=== PATIENT | female | born 1970 | race Caucasian/White ===

== ENCOUNTER 2023-04-28 14:05 | Outpatient (AMB) | payer BC, SELFPAY ==
--- NOTE | 2023-04-28 14:06 | MHC.OFFVIS ---
Intake Vital Signs 04/28/23 14:08 Height 5 ft BP 102/68 Blood Pressure Location Rt brachial Position Sitting Pulse 72 Pulse Source Pulse Oximeter Pulse Oximetry (%) 99 Oxygen Delivery Method Room Air Intake Visit Reasons: Mild COPD Web Merchandiser Required: No Senior Project Architect: Senior Project Architect offered & declined Accompanied by: Self / Same As Patient Allergies acetaminophen [From Percocet] Adverse Reaction (Verified 04/28/23 14:30) hallucinations and vomiting codeine Adverse Reaction (Verified 04/28/23 14:30) Vomiting, hallucinations doxycycline Adverse Reaction (Verified 04/28/23 14:30) Vomiting, hallucinations ibuprofen [From Motrin] Adverse Reaction (Verified 04/28/23 14:30) Nausea and myalgias oxycodone [From Percocet] Adverse Reaction (Verified 04/28/23 14:30) hallucinations and vomiting Sulfa (Sulfonamide Antibiotics) Adverse Reaction (Verified 04/28/23 14:30) rash and vomiting tramadol Adverse Reaction (Verified 04/28/23 14:30) hallucinations and vomiting zolpidem Adverse Reaction (Verified 04/28/23 14:30) Hallucinations gluten Adverse Reaction (Uncoded 04/28/23 14:30) severe nausea Medication List - Last Reconciled 04/28/23 by Denae Farrell LPN albuterol sulfate 90 mcg/actuation 2 puffs inhalation Q4-6H PRN cetirizine 10 mg PO DAILY PRN cholecalciferol (vitamin D3) 50 mcg PO DAILY coenzyme Q10 100 mg PO DAILY cyclobenzaprine 10 mg PO BID PRN estradiol (Vivelle-Dot) 1 patch transdermal 2XW fluticasone furoate 27.5 mcg/actuation (Flonase Sensimist) 1 spray intranasal DAILY levothyroxine (Levoxyl) 137 mcg PO DAILY methylphenidate HCl ER (Concerta) 27 mg PO DAILY multivitamin 1 tab PO DAILY omeprazole 20 mg PO DAILY sodium chloride 0.65% (Saline Mist) 1 spray intranasal DAILY PRN HPI Mild COPD HPI Details Cata is a pleasant 53 year old female, never smoker, although reports moderate second hand exposure, with underlying borderline obstruction on recent PFT, chronic sinusitis and allergic rhinitis. She was referred by PCP for pulmonary evaluation. She reports over the last year notable coughing fits with associated wheezing and chest tightness that were triggered when cutting the grass or exposure to other allergens. She was prescribed albuterol but was unsure when to use it. She is quite active and denies any respiratory symptoms with exercise. She also notes a prior chest CT years ago with possible nodules but was reassured there were no concerning findings. She reports no prior history of asthma but reports environmental allergies. No recent allergy testing. She has been taking zyrtec on a daily basis with relatively good control of symptoms. Her mother, smoker, had COPD, otherwise no pertinent family history. She denies any occupational exposures. Of note, she did report difficulty with swallowing which results in coughing/choking. She has an upcoming evaluation with GI. [facility] Social History (Updated 04/28/23 @ 14:17 by Denae Farrell LPN) Patient Tobacco Use Status: Never used Tobacco Review of Systems Const Denies chills, Denies fever(s), Denies headache(s) and Denies night sweats Eyes Denies dry eyes, Denies irritation and Denies itchy eyes ENT Reports Normal hearing present, Denies headache(s), Denies nasal congestion, Denies nasal discharge, Denies post nasal drip and Denies sore throat Card Denies chest pain, Denies chest pain at rest, Denies chest pain with activity, Denies claudication, Denies leg edema, Denies dyspnea, Denies dyspnea on exertion, Denies orthopnea and Denies paroxysmal nocturnal dyspnea Resp Denies chest congestion, Denies excessive phlegm production, Denies pain on inspiration, Denies pain with cough, Denies dyspnea, Denies dyspnea on exertion and Denies stridor Musc Denies myalgias Neuro Reports Normal hearing present and Denies headache(s) Pieter/Lymph Denies lymphadenopathy Aller/Immun Denies itchy eyes and Denies seasonal rhinorrhea Physical Exam Vital Signs: Last Vital Signs Pulse 72 04/28/23 14:08 BP 102/68 04/28/23 14:08 Pulse Ox 99 04/28/23 14:08 Oxygen Delivery Method Room Air 04/28/23 14:08 Const General: cooperative, healthy appearing, comfortable, no acute distress, well developed and alert Orientation/consciousness: patient oriented x3 Limitations: no limitations HEENT Head: Yes normal to inspection, Yes normocephalic and Yes atraumatic Ears: hearing grossly normal bilaterally and external ears normal Eyes General: appearance normal, both eyes and all related structures Eyelids: Yes eyelids normal Sclerae: sclerae normal EOM: EOMs intact bilaterally Neck Neck: Yes normal visual inspection and Yes no lymphadenopathy Lymphatic: no lymphadenopathy noted Chest Chest palpation & inspection: normal inspection of the chest Resp Effort & Inspection: normal respiratory effort, able to speak in complete sentences, no audible wheezes, no cough, no stridor, not tachypneic, no tripod positioning and no use of accessory muscles Auscultation: clear to auscultation bilaterally Cardio Jugular venous distension: no JVD Rate: regular rate Rhythm: regular rhythm Skin Other: warm, dry General skin exam: no rashes or lesions noted Neuro General: patient oriented x3 Cranial nerves: Yes Normal hearing present Cognition (Neuro): normal cognition Gait exam (Neuro): Normal gait present Extrem General: Yes normal to inspection, Yes capillary refill normal, Yes no clubbing, cyanosis or edema and Yes no pedal edema Psych Appearance: grossly normal and well kempt Speech and movement: Normal speech and movement present and Clear speech present Affect: normal affect Attitude: cooperative Thought process: Normal thought process present Thought content: Normal thought content present Insight: Good insight present (Psych) Judgement: Good judgement present (Psych) Results Reviewed Results Reviewed: Assessment & Plan Assessment & Plan (1) Cough: Code(s): R05.9 - Cough, unspecified (2) Environmental allergies: Code(s): Z91.09 - Other allergy status, other than to drugs and biological substances Plan Cata's symptoms are likely multifactorial with contribution from pulmonary, allergies and possible GI contribution. PFT revealed borderline obstruction with no response to bronchodilators. TLC normal, increased RV suggests air trapping as well as increased DLCO. Will send for chest CT to assess for cough as well as RAST. All questions were answered and patient is in agreement of plan. Will follow up to review results. Orders: Orders CT chest wo IV con 04/28/23 R05.9 - Cough, unspecified Immunoglobulin E 04/28/23 Z91.09 - Other allergy status, other than to drugs and biological substances Complete Blood Count Auto Diff 04/28/23 Z91.09 - Other allergy status, other than to drugs and biological substances Coding Level of Care Code New Pt Level 4 (11893) Diagnoses Cough R05.9 Environmental allergies Z91.09
[2023-04-28 14:08] VITALS: BP 102/68; PULSE 72; O2SAT 99
== END 2023-04-28 15:20 | disposition home or self-care (01) ==
PROVIDERS: PCP Pediatrics; Referring Provider Pediatrics; Visit Provider Nurse Practitioner Family
DX: R05.9 Cough, unspecified (principal); Z91.09 Other allergy status, other than to drugs and biological substances
CPT/HCPCS: 99204

== ENCOUNTER → 2023-04-28 14:05 | Outpatient (BNVA) | payer BC, SELFPAY | PROVIDERS: PCP Pediatrics; Referring Provider Pediatrics; Visit Provider Nurse Practitioner Family ==

== ENCOUNTER 2023-07-14 07:30 | Outpatient (REF) | payer BC, SELFPAY ==
--- NOTE | ~2023-07-14 | CT_ITS ---
EXAMINATION: CT CHEST WITHOUT CONTRAST CLINICAL INFORMATION: Cough. COMPARISON: None available. TECHNIQUE: Multidetector volumetric CT imaging of the chest was done. Axial MIP volume rendering provided. Sagittal and coronal reformatted images were obtained. This CT examination was performed using dose optimization techniques as appropriate, variously including the following: *Automated exposure control *Adjustment of mA and/or kV according to patient size (this includes techniques or standardized protocols for targeted exams where dose is matched to indication/reason for exam; i.e. extremities or head) *Use of iterative reconstruction technique DLP: 117 mGy-cm FINDINGS: INTERLOCKING TOWER OPERATOR: The lungs are symmetrically well-expanded and grossly clear. LUNGS: Within the central right apex (5:108), a small endobronchial density is seen. Laterally within the right upper lobe (5:187), a 3 mm noncalcified subpleural nodule is seen. Abutting the right accessory and major fissures (5:247 and 264), there are 3 approximately 5 mm benign, pleural-based lymph nodes. At the lateral right base (5:313), there is a coarse benign, calcified granuloma. At the posteromedial right base (5:322 and 367), 4 mm and 3 mm benign, pleural-based lymph nodes are seen. At the anterior right base (5:372), a coarse benign, calcified granuloma is seen. Within the left upper lobe (5:121 and 159), there are coarse benign, calcified granulomas. There is mild biapical pleural and parenchymal scarring. There is no mass, infiltrate or groundglass opacity. No generalized increase is seen in peripheral interlobular septal markings. No bleb or bullous formation is seen. There is no generalized small airway thickening. The central airways appear patent. MEDIASTINUM: The thyroid is unremarkable. There is no thoracic aortic aneurysm. There are small benign, calcified mediastinal and bilateral hilar lymph nodes. No sizable mediastinal or hilar lymphadenopathy is seen. CORONARY ARTERY CALCIFICATION: None visualized on this study. PLEURA: There is no pleural effusion. No pleural mass or thickening. AXILLA: No lymphadenopathy. UPPER ABDOMEN: There is a very small hiatus hernia. There are benign, calcified splenic granulomas. OSSEOUS STRUCTURES: There is multi-level lower cervical, thoracic and upper lumbar spondylosis and Schmorl's node formation. No acute or aggressive osseous finding is noted. CT/CT chest wo IV con IMPRESSION: Multiple benign, calcified lung nodules are seen. There are small benign, calcified mediastinal and hilar lymph nodes and benign, calcified splenic granulomas. Together, these findings are consistent with chronic granulomatous disease. No mass, infiltrate or groundglass opacity is seen. There is no thoracic lymphadenopathy or pleural effusion. No aggressive osseous lesion is seen. A 3 mm noncalcified subpleural nodule within the lateral right apex is of doubtful clinical significance. According to the UPDATED 2017 Fleischner Society recommendations, the advised follow-up imaging for solid nodules < 6 mm is: LOW RISK PATIENT: No routine follow-up. HIGH RISK PATIENT: Optional CT at 12 months. Fleischner guidelines were followed.
== END 2023-07-14 07:31 | disposition home or self-care (01) ==
LOC: HO.CT 07:30
PROVIDERS: Visit Provider Nurse Practitioner Family
DX: R05.9 Cough, unspecified (principal)
CPT/HCPCS: 71250